=== PATIENT | female | born 1970 | race Caucasian/White ===

== ENCOUNTER 2016-12-11 12:26 | Emergency (ER) | payer BC, MEDICAID ==
[~2016-12-11] VITALS: Ht 165.1 cm; Wt 72.7 kg
[2016-12-11 12:45] VITALS: Ht 165.1 cm; Wt 72.7 kg
[2016-12-11 15:49] LABS: ADD SCAN DIFF NO
[2016-12-11 15:52] LABS: ADD UMIC YES; URINE BILIRUBIN (Dip) 1+ (NEGATIVE); URINE BLOOD (Dip) 3+ (NEGATIVE); URINE COLOR RED (YELLOW); URINE GLUCOSE (Dip) NEGATIVE (NEGATIVE); URINE KETONES (Dip) TRACE (NEGATIVE); URINE LEUKOCYTE ESTERASE (Dip) TRACE (NEGATIVE); URINE NITRITE (Dip) NEGATIVE (NEGATIVE); URINE TOTAL PROTEIN (Dip) 2+ (NEGATIVE); URINE UROBILINOGEN (Dip) 1.0 E.U./dL (0.1-1.0)
[2016-12-11 15:59] LABS: INR 0.97; PROTIME 12.9 Sec (12.2-14.2)
[2016-12-11 16:00] LABS: BASOPHILS % 0.4 % (0.0-2.0); EOSINOPHILS % 0.5 % (0.0-7.0); HEMATOCRIT 38.6 % (37.0-47.0); HEMOGLOBIN 12.5 g/dl (12.0-16.0); LYMPHOCYTES # 2.2 10^3/ul (0.8-2.9); LYMPHOCYTES % 27.2 % (15.0-51.0); MEAN CORPUSCULAR HEMOGLOBIN 29.7 pg (29.0-33.0); MEAN CORPUSCULAR HGB CONC 32.4 g/dl (32.0-37.0); MEAN CORPUSCULAR VOLUME 91.7 fl (82.0-101.0); MEAN PLATELET VOLUME 9.3 fl (7.4-10.4); MONOCYTE # 0.5 10^3/ul (0.3-0.9); MONOCYTES % 6.3 % (0.0-11.0); NEUTROPHIL # 5.2 10^3/ul (1.6-7.5); NEUTROPHILS % 65.3 % (39.0-77.0); PARTIAL THROMBOPLASTIN TIME 29.4 Sec (25.0-35.0); PLATELET COUNT 359 10^3/UL (140-415); RED BLOOD COUNT 4.21 10^6/ul (4.20-5.40)
[2016-12-11 16:01] LABS: ALBUMIN 4.6 g/dl (3.3-4.9)
[2016-12-11 16:02] LABS: POTASSIUM 3.7 mmol/L (3.5-5.1)
[2016-12-11 16:04] LABS: ALBUMIN/GLOBULIN RATIO 1.31; BILIRUBIN,INDIRECT 0.4 mg/dl (0-1.1); BILIRUBIN,TOTAL 0.4 mg/dl (0.2-1.3); CALCIUM 9.5 mg/dl (8.4-10.2); CREATININE 0.62 mg/dl (0.44-1.00); TOTAL PROTEIN 8.1 g/dl (6.1-8.1)
[2016-12-11 16:18] LABS: BACTERIA,URINE FEW; ICTOTEST NEGATIVE (NEGATIVE); SQUAMOUS EPITHELIAL CELL,UR RARE; URINE RBCS >200 /HPF (0)
--- NOTE | 2016-12-11 16:29 | RADRPT ---
PROCEDURE: US Pelvis CLINICAL INDICATION: Pelvic pain TECHNIQUE: Sonographic evaluation of the pelvis was performed utilizing both transabdominal and tr ansvaginal technique. Curved array transabdominal transducer technique as well as a high frequency endovaginal probe was utilized. Images were reviewed on the high-resolution PACS workstation. COMPARISON: None available FINDINGS: The uterus is normal in size, echogenicity, and morphology measuring 12.6 x 6.1 x 7.0 cm in dimensio n. The uterus is anteverted in normal position. The endometrium is thickened and heterogeneous, m easuring 21.8 mm in diameter. The right ovary measures 2.9 x 2.4 x 2.0 cm in dimension, and demonstrates a 10 mm dominant follicle . The left ovary measures 2.2 x 1.3 x 2.1 cm in dimension, and demonstrates a 13 mm dominant follic le. No ovarian torsion, adnexal mass or pelvic free fluid is identified. IMPRESSION: 1. There is nonspecific thickening and heterogeneity of the endometrium, possibly indicating secret ory phase of the menstrual cycle, though endometrial mass cannot be definitely excluded. Consider c ontinued follow-up. 2. Ovaries are unremarkable. No adnexal mass or pelvic free fluid is seen. RPTAT: HDWR .Lalo Thakur MD, Date Time Electronically viewed and signed by .Lalo Thakur MD, MD on 12/11/2016 16:28 .R/
--- NOTE | 2016-12-11 16:49 | ERD ---
ER Documentation Chief Complaint Date/Time DATE: 12/11/16 TIME: 16:47 Chief Complaint Pt with VB since 11/25/16. HPI This 46-year-old female presents with vaginal bleeding since last 2 weeks. She was seen at [facility] was told her uterus does not work and she needs a hysterectomy. She states that she was given a transfusion 2 weeks ago. She is here she states that she was not given an appointment [facility]. She denies pain, fevers, vomiting, shortness breath or chest pain. She is taking Provera 10 mg a day as well as iron. ROS All systems reviewed and are negative except as per history of present illness. Medications Home Meds No Active Prescriptions or Reported Meds Allergies Allergies: Coded Allergies: No Known Allergy (Unverified , 06/11/12) PMhx/Soc History of Surgery: Yes (2 C-SECTIONS ) Anesthesia Reaction: No Hx Neurological Disorder: Yes (MIGRAINE HEADACHES ) Hx Respiratory Disorders: No Hx Cardiac Disorders: No Hx Psychiatric Problems: No Hx Miscellaneous Medical Probl: No Hx Alcohol Use: No Hx Substance Use: No Hx Tobacco Use: No Smoking Status: Never smoker Physical Exam Vitals Vital Signs Date Time Temp Pulse Resp B/P Pulse Ox O2 Delivery O2 Flow Rate FiO2 12/11/16 12:45 99.0 68 18 108/55 100 Physical Exam Const: [] Alert, [id number] per Head: Atraumatic Eyes: Normal Conjunctiva ENT: Normal External Ears, Nose and Mouth. Neck: Full range of motion..~ No meningismus. Resp: Clear to auscultation bilaterally Cardio: Regular rate and rhythm, no murmurs Abd: Soft, non tender, non distended. Normal bowel sounds Skin: No petechiae or rashes Back: No midline or flank tenderness Ext: No cyanosis, or edema Neur: Awake and alert Psych: Normal Mood and Affect Result Diagram: 12/11/16 1542 12/11/16 1542 Results 24 hrs Laboratory Tests Test 12/11/16 15:10 12/11/16 15:42 Urine Bacteria FEW Urine Bilirubin 1+ Urine Clarity CLOUDY Urine Color RED Urine Glucose NEGATIVE% Urine Hemoglobin 3+ Urine Ictotest NEGATIVE Urine Ketones TRACE Urine Leukocyte Esterase TRACE Urine Microscopic RBC >200/HPF Urine Microscopic WBC 0-2/HPF Urine Nitrite NEGATIVE Urine Specific [facility] 1.010 Urine Squamous Epithelial Cells RARE Urine Total Protein 2+ Urine Urobilinogen 1.0 E.U./dL Urine pH 7.0 Activated Partial Thromboplast Time 29.4Sec Alanine Aminotransferase (ALT/SGPT) 26IU/L Albumin 4.6g/dl Albumin/Globulin Ratio 1.31 Alkaline Phosphatase 66IU/L Anion Gap 20 Aspartate Amino Transf (AST/SGOT) 19IU/L Basophils # 0.010^3/ul Basophils % 0.4% Blood Urea Nitrogen 16mg/dl Calcium Level 9.5mg/dl Carbon Dioxide Level 23mmol/L Chloride Level 103mmol/L Creatinine 0.62mg/dl Direct Bilirubin 0.00mg/dl Eosinophils # 0.010^3/ul Eosinophils % 0.5% Globulin 3.50g/dl Glucose Level 94mg/dl Hematocrit 38.6% Hemoglobin 12.5g/dl INR International Normalized Ratio 0.97 Indirect Bilirubin 0.4mg/dl Lymphocytes # 2.210^3/ul Lymphocytes % 27.2% Mean Corpuscular Hemoglobin 29.7pg Mean Corpuscular Hemoglobin Concent 32.4g/dl Mean Corpuscular Volume 91.7fl Mean Platelet Volume 9.3fl Monocytes # 0.510^3/ul Monocytes % 6.3% Neutrophils # 5.210^3/ul Neutrophils % 65.3% Nucleated Red Blood Cells # 0.010^3/ul Nucleated Red Blood Cells % 0.0/100WBC Platelet Count 35796^3/UL Potassium Level 3.7mmol/L Prothrombin Time 12.9Sec Prothrombin Time Ratio 1.0 Red Blood Count 4.2110^6/ul Red Cell Distribution Width 16.0% Sodium Level 142mmol/L Total Bilirubin 0.4mg/dl Total Protein 8.1g/dl White Blood Count 8.010^3/ul Procedures/MDM CBC and CMP is normal. Urine is negative for acute findings and hCG is negative. Pelvic ultrasound shows endometrial thickening of uncertain etiology. Differential includes secretory phase of menstrual period or neoplasm. Patient was stable throughout the ED course. Patient presents with vaginal bleeding I am recommending further evaluation with gynecology as an outpatient. Patient has no signs or symptoms of life-threatening anemia, acute abdomen, emergent conditions requiring further evaluation hospitalization. Patient is advised to follow-up with her primary care doctor to [facility] as this is where she was seen before. She was additionally referred to local airway controller as well as [facility] for further evaluation management. The patient was stable with no new complaints during the ER course. Clinically, there is no current evidence to suggest meningitis, sepsis, acute abdomen, pneumonia, acute coronary syndrome, pulmonary embolism, or any other emergent condition appearing to require further evaluation or hospitalization. The patient should certainly return for any new or worsening symptoms per the aftercare instructions. They should otherwise follow-up with her primary care doctor for reevaluation this week. Departure Diagnosis: Primary Impression: Vaginal bleeding Condition: Stable Patient Instructions: Dysfunctional Uterine Bleeding Referrals: [employer] [address] [facility] [address] [place] [address] OFFICE FAX , [facility] [address] [place] [address] [address] [facility] [address] [place] [address] [address] SPANN, [facility] [address] [facility] [address] [address] [facility] [address] [place] [address] [facility] [address] [place] [address] [phone] [facility] [address] - JESSICA ANDERSEN [address], [facility] [address] [address], [place] [address] [facility]. [address], [facility] [address] [address], [place] [address] [place] [address] [facility] () Usted se beck hecho un examen mdico de control que le indica que no est en humberto condicin que requiera tratamiento urgente en el Departamento de Emergencia. Un estudio ms profundo y el tratamiento de xavier condicin pueden esperar sin ningn riesgo hasta que usted sea atendida/o en el consultorio de xavier mdico o humberto cl danny. Es responsabilidad suya arreglar humberto juju para el seguimiento del faustino. MANEJO DE CONDICIONES NO URGENTES EN EL FUTURO 1) Si usted tiene un mdico de atencin primaria: Usted debera llamar a xavier mdico de atencin primaria antes de venir al departamento de emergencia. Despus de las horas de consultorio, xavier doctor o xavier asociado/a est disponible por telfono. El mdico o enfermero de will en el servicio telefnico puede asesorarle por zina medio para atender el problema, o faustino contrario se puede programar humberto juju. 2) Si usted no tiene un mdico de atencin primaria: Llame al mdico o clnica de referencia que aparece abajo keya las horas de consultorio para hacer humberto juju para que le vean. CLINICAS: [facility] [phone] [facility] [phone] [facility] [phone] [facility]. [place] [phone] [facility] [place] [address] [phone] [facility]. [phone] [address] Additional Instructions: RECOMIENDO UN JUJU CON GYNECOLOGICO , PROBABLAMNETE NECESITA RASPA O BIOPSIA. CHEQUE CON XAVIER DOCTOR PRIMRIO EN [place]. Va al xavier doctor/ specialista para mas evaluacon en el proximo semana. posiblemente necesita autorizado de xavier doctor primario para specialista. Regresa para fiebre, o mas o nueva simptomas. HOMER GHOSH MD Dec 11, 2016 16:49
== END 2016-12-11 17:02 | disposition home or self-care (01) ==
LOC: FTE 12:26
DX: N93.9 Abnormal uterine and vaginal bleeding, unspecified (principal); R10.2 Pelvic and perineal pain
CPT/HCPCS: 36415; 76830; 76856; 80053; 81001; 81003; 85025; 85610; 85730

== ENCOUNTER 2018-06-01 15:50 | Emergency (ER) | END 2018-06-01 18:22 | disposition home or self-care (01) ==

== ENCOUNTER 2018-12-08 12:33 | Emergency (ER) | payer OTHER ==
[~2018-12-08] VITALS: Wt 74.2 kg
[~2018-12-08 12:33] MED LIST: IBUP-1542 PO; ONDA4TAB13 PO
[2018-12-08 12:53] VITALS: BP 128/58; PULSE 78; RESP 18
--- NOTE | 2018-12-08 15:47 | ERD ---
ER Documentation Chief Complaint Chief Complaint R EAR PAIN X 1 WEEK HPI This is a 48-year-old female who presents for evaluation of her right ear pain for 1 week, patient also endorses generalized body aches, she denies fever, no n ausea or vomiting. She has no chest pain or shortness of breath. She states that she has a history of prediabetes ROS All systems reviewed and are negative except as per history of present illness. Medications Home Meds Active Scripts Ondansetron Hcl* (Zofran*) 4 Mg Tab, 4 MG PO Q6H PRN for NAUSEA AND OR VOMITING, #30 TAB Prov:HUY VELEZ DO 06/01/18 Ibuprofen* (Ibuprofen*) 600 Mg Tablet, 600 MG PO Q6H PRN for PAIN, #30 TAB Prov:HUY VELEZ DO 06/01/18 Allergies Allergies: Coded Allergies: Penicillins (Verified Allergy, Unknown, 12/08/18) PMhx/Soc History of Surgery: Yes (shoulder sx) Anesthesia Reaction: No Hx Neurological Disorder: No Hx Respiratory Disorders: No Hx Cardiac Disorders: No Hx Psychiatric Problems: No Hx Miscellaneous Medical Probl: Yes (DM) Hx Alcohol Use: No Hx Substance Use: No Hx Tobacco Use: No Smoking Status: Never smoker Physical Exam Vitals Vital Signs Date Temp Pulse Resp B/P (MAP) Pulse Ox O2 O2 Flow FiO2 Time Delivery Rate 12/08/18 98.5 78 18 128/58 99 12:53 (81) Physical Exam Const: No acute distress Head: Atraumatic Eyes: Normal Conjunctiva ENT: Normal External Ears, Nose and Mouth. The right external ear canal is erythematous, there is no drainage. Neck: Full range of motion. No meningismus. Resp: Clear to auscultation bilaterally Cardio: Regular rate and rhythm, no murmurs Abd: Soft, non tender, non distended. Normal bowel sounds Skin: No petechiae or rashes Back: No midline or flank tenderness Ext: No cyanosis, or edema Neur: Awake and alert Psych: Normal Mood and Affect Result Diagram: 12/08/18 1417 12/08/18 1417 Results 24 hrs Laboratory Tests Test 12/08/18 14:17 White Blood Count 6.8 10^3/ul Red Blood Count 4.49 10^6/ul Hemoglobin 13.5 g/dl Hematocrit 40.9 % Mean Corpuscular Volume 91.1 fl Mean Corpuscular Hemoglobin 30.1 pg Mean Corpuscular Hemoglobin Concent 33.0 g/dl Red Cell Distribution Width 12.5 % Platelet Count 391 10^3/UL Mean Platelet Volume 9.0 fl Immature Granulocytes % 0.300 % Neutrophils % 57.9 % Lymphocytes % 32.4 % Monocytes % 7.2 % Eosinophils % 1.3 % Basophils % 0.9 % Nucleated Red Blood Cells % 0.0 /100WBC Immature Granulocytes # 0.020 10^3/ul Neutrophils # 3.9 10^3/ul Lymphocytes # 2.2 10^3/ul Monocytes # 0.5 10^3/ul Eosinophils # 0.1 10^3/ul Basophils # 0.1 10^3/ul Nucleated Red Blood Cells # 0.0 10^3/ul Sodium Level 142 mmol/L Potassium Level 3.8 mmol/L Chloride Level 108 mmol/L Carbon Dioxide Level 25 mmol/L Anion Gap 9 Blood Urea Nitrogen 15 mg/dl Creatinine 0.52 mg/dl Est Glomerular Filtrat Rate mL/min > 60 mL/min Glucose Level 92 mg/dl Hemoglobin A1c 5.3 % Calcium Level 9.8 mg/dl Total Bilirubin 0.2 mg/dl Direct Bilirubin 0.00 mg/dl Indirect Bilirubin 0.2 mg/dl Aspartate Amino Transf (AST/SGOT) 17 IU/L Alanine Aminotransferase (ALT/SGPT) 14 IU/L Alkaline Phosphatase 68 IU/L Total Protein 7.7 g/dl Albumin 4.5 g/dl Globulin 3.20 g/dl Albumin/Globulin Ratio 1.40 Procedures/MDM Is a 48-year-old female who presents for evaluation of right ear pain. Her history and physical is most consistent with likely uncomplicated otitis externa, she will be discharged with otic antibiotic drops. Patient asked for "blood work" since she has not seen a primary care doctor in some time, her EKG showed normal sinus rhythm, with no evidence of acute ischemia. Labs were checked given her history of possible prediabetes, to ensure that she did not have uncontrolled hyperglycemia leading to an infection, labs were all normal i ncluding hemoglobin A1c which is 5.3, at discharge the patient was in no acute distress. Departure Diagnosis: Primary Impression: Right ear pain Condition: Stable JESSIE BURLESON MD Dec 08, 2018 15:47
[2018-12-08] MEDS ORDERED: CIPR7.5D RIGHT EAR (16:01)
== END 2018-12-08 16:59 | disposition home or self-care (01) ==
LOC: FTE 12:33
DX: H92.01 Otalgia, right ear (principal); E11.9 Type 2 diabetes mellitus without complications; M54.2 Cervicalgia
CPT/HCPCS: 80053; 83036; 85025; 93005; Z7502